=== PATIENT | female | born 1945 | race Two or more races ===

== ENCOUNTER 2019-02-06 14:33 | Inpatient (IN) | payer OTHER ==
[~2019-02-06] VITALS: Ht 160 cm; Wt 58.1 kg
[2019-02-19] MEDS ORDERED: LISINOPRIL20 MG PO (10:02)
[2019-02-19] MEDS ORDERED: CLONAZEPAM2 M1 PO (10:02)
== END 2019-02-28 14:52 | disposition home or self-care (01) | DRG 330 ==
LOC: SURG 02-19 10:00 → O/R 02-25 06:25 → SURG 02-25 06:25
PROVIDERS: ADMIT Colon & Rectal Surgery
PROC: 0WUF47Z Supplement Abdominal Wall with Autologous Tissue Substitute, Percutaneous Endoscopic Approach (ICD-10-PCS; 2019-02-25)
PROC: 0TQB4ZZ Repair Bladder, Percutaneous Endoscopic Approach (ICD-10-PCS; 2019-02-25)
PROC: 0UQG4ZZ Repair Vagina, Percutaneous Endoscopic Approach (ICD-10-PCS; 2019-02-25)
PROC: 0DJD8ZZ Inspection of Lower Intestinal Tract, Via Natural or Artificial Opening Endoscopic (ICD-10-PCS; 2019-02-25)
PROC: 0DTN4ZZ Resection of Sigmoid Colon, Percutaneous Endoscopic Approach (ICD-10-PCS; principal; 2019-02-25 17:15)
DX: K57.20 Diverticulitis of large intestine with perforation and abscess without bleeding (principal); N82.3 Fistula of vagina to large intestine; K92.1 Melena; N99.71 Accidental puncture and laceration of a genitourinary system organ or structure during a genitourinary system procedure; L76.12 Accidental puncture and laceration of skin and subcutaneous tissue during other procedure; M34.89 Other systemic sclerosis; I10 Essential (primary) hypertension